=== PATIENT | male | born 1975 | race Caucasian/White ===

== ENCOUNTER 2019-07-28 09:30 | Emergency (ER) | payer SELFPAY ==
--- NOTE | 2019-07-28 09:49 | ED Physician Documentation ---
Upper Respiratory Symptoms - HISTORIAN Historian: patient - HPI Chief Complaint: Upper Respiratory Symptoms Additional Information: 44 year old male presents with complaint of cough and congestion, GOEL x 3 days. He reports increased cough at night keeping him awake. Green nasal drainage and fever of 101.3 3 days ago but no fevers > 24 hours. He states that he just got out of snf and is currently at the [facility]. He states that he has plenty of insulin and blood sugar this morning was around 150. Onset: days ago Context: denies: multiple patients Severity: mild Associated Symptoms: fever, runny nose, sinus drainage, productive cough - ROS CONST/EYES: denies: weakness CVS/RESP: none LYMPH: denies: rash, swollen glands GI/: none NEURO/PSYCH: denies: dizziness MS/SKIN: denies: muscle aches - PAST HX Lung Disease: COPD PE Risk Factors: hypertension Other History: diabetes Type 2 Surgeries/Procedures: other (orthopedic) Immunizations: UTD Allergies/Adverse Reactions: Allergies Allergy/AdvReac Type Severity Reaction Status Date / Time No Known Allergies Allergy Verified 07/28/19 09:46 Home Medications: Ambulatory Orders Medication Instructions Recorded Albuterol Sulfate [Albuterol 2 inh IH Q4H PRN #1 hfa.aer.ad 07/28/19 Sulfate Hfa] Azithromycin [Zithromax] 250 mg PO DAILY #6 tablet 07/28/19 Hydroxyzine Pamoate [Vistaril] 50 mg PO HS 07/28/19 Insulin NPH Hum/Reg Insulin Hm 10 unit SQ BID 07/28/19 [Relion Novolin 70-30 Vial] Insulin Regular, Human [Novolin R] See Protocol IJ AC15 07/28/19 Mirtazapine [Remeron] 45 mg PO HS 07/28/19 guaiFENesin [Robitussin] 200 mg PO Q6H PRN #240 ml 07/28/19 predniSONE [Deltasone] 40 mg PO DAILY #10 tablet 07/28/19 - SOCIAL HX Smoking History: greater than 1 pack/day Alcohol Use: rarely Drug Use: none - FAMILY HX Family History: none - REVIEWED ASSESSMENTS Nursing Assessment Reviewed: Yes Vitals Reviewed: Yes Upper Respiratory Symptoms - EXAM General Appearance: no acute distress, alert EENT: eyes nml inspection, nml ENT inspection, lids & conjunct. nml, PERRL, ear nml, nose nml, pharynx nml, airway nml Neck: normal inspection Respiratory: speaks full sentences, wheezes, rhonchi Abdomen: nml bowel sounds CVS: heart sounds normal Skin: color nml, no rash, warm,dry Extremities: normal range of motion Neuro/Psych: oriented x3, neuro intact, mood/affect nml Discharge Clincal Impression: Upper respiratory infection with cough and congestion Prescriptions: Albuterol Sulfate [Albuterol Sulfate Hfa] 2 inh IH Q4H PRN #1 hfa.aer.ad PRN Reason: Shortness of breath Azithromycin [Zithromax] 250 mg PO DAILY #6 tablet guaiFENesin [Robitussin] 200 mg PO Q6H PRN #240 ml PRN Reason: Cough predniSONE [Deltasone] 40 mg PO DAILY #10 tablet Referrals: Primary Doctor,No [Primary Care Provider] - 2 Days Additional Instructions: Take antibiotic as directed (Zithromax 500mg today, then 250mg daily x 4 days) Steroid; Prednisone 40 mg daily x 4 days (watch blood sugars closely) Albuterol inhaler (2 puffs every 4-6 hrs. as needed for shortness of breath or wheezing) Robitussin 2 tsp. by mouth every 4-6 hours as needed for cough Increase water intake > 64oz daily Use humidifier in room May use Vicks Vapo Rub Follow up with PCP next week for re-evaluation Condition: Good Disposition: 01 HOME, SELF-CARE Decision to Admit: NO Decision Time: 10:10
[2019-07-28 09:50] VITALS: BP 142/84
== END 2019-07-28 09:53 | disposition home or self-care (01) ==
LOC: ED 09:30
DX: J06.9 Acute upper respiratory infection, unspecified (principal); F17.210 Nicotine dependence, cigarettes, uncomplicated
CPT/HCPCS: 99282; 99284